=== PATIENT | male | born 1990 | race Caucasian/White ===

== ENCOUNTER 2017-01-14 20:12 | Emergency (ER) | payer SELFPAY ==
[~2017-01-14] VITALS: Ht 177.8 cm; Wt 61.2 kg
[~2017-01-14 20:12] MED LIST: 'PARAFON FORTE500 M1 PO; AMOXICILLIN500 M2 PO; AMOXICILLIN500 MG PO; CLARITIN-D 12 H1 TAB PO; CORTISPORIN SUS10 ML OT; DARVOCET N 1001 TAB PO; DEPAKOTE500 MG; HYDROCODONE BIT1 T11 PO; MOTRIN800 MG PO; Motrin,Rufen800 MG PO; NAPROSYN500 MG PO; OMNICEF300 MG PO; SEROQUEL50 MG PO; TOBREX OPHTH S2.5 ML OPH; ZOLOFT50 MG PO; ZYRTEC10 MG PO; Zofran4 MG PO
[2017-01-14 20:18] VITALS: BP 132/99
== END 2017-01-14 22:23 | disposition home or self-care (01) ==
LOC: ED 20:12
DX: M79.641 Pain in right hand (principal); F17.200 Nicotine dependence, unspecified, uncomplicated; Z91.030 Bee allergy status

== ENCOUNTER 2017-06-13 12:21 | Emergency (ER) | payer SELFPAY ==
[~2017-06-13] VITALS: Ht 177.8 cm; Wt 56.7 kg
[2017-06-13 12:42] VITALS: BP 136/82
[2017-06-13] MEDS ORDERED: AMOXICILLIN500 M2 PO (14:27)
[2017-06-13] MEDS ORDERED: FLONASE ALLERG9.9 ML NAS (14:27)
== END 2017-06-13 14:39 | disposition home or self-care (01) ==
LOC: ED 12:21
DX: R51 Headache (principal); J32.9 Chronic sinusitis, unspecified; G43.909 Migraine, unspecified, not intractable, without status migrainosus; F17.200 Nicotine dependence, unspecified, uncomplicated; Z91.030 Bee allergy status; Z79.899 Other long term (current) drug therapy

== ENCOUNTER 2017-07-31 09:43 | Emergency (ER) | payer SELFPAY ==
[~2017-07-31] VITALS: Ht 177.8 cm; Wt 52.2 kg
[~2017-07-31 09:43] MED LIST changes: +FLONASE ALLERG9.9 ML NAS
[2017-07-31 09:48] VITALS: BP 129/90
== END 2017-07-31 11:20 | disposition home or self-care (01) ==
LOC: ED 09:43
DX: S60.221A Contusion of right hand, initial encounter (principal); S60.311A Abrasion of right thumb, initial encounter; Z79.899 Other long term (current) drug therapy; W22.01XA Walked into wall, initial encounter; Y93.89 Activity, other specified; Y92.89 Other specified places as the place of occurrence of the external cause; Y99.9 Unspecified external cause status

== ENCOUNTER 2018-03-13 10:05 | Emergency (ER) | payer SELFPAY ==
[~2018-03-13] VITALS: Ht 177.8 cm; Wt 68.0 kg
[2018-03-13 10:50] LABS: BASO # 0.1 10*3/uL (0.0-0.1); BASO % 0.4 % (0.0-1.0); EOS # 0.3 10*3/uL (0.0-0.4); EOS % 1.8 % (1.0-4.0); HEMATOCRIT 45.5 % (42.0-52.0); HEMOGLOBIN 15.8 g/dl (14.0-18.0); LYMPH # 1.5 10*3/uL (1.3-4.4); LYMPH % 9.7 % (27.0-41.0); MEAN CELL VOLUME 95.4 fl (80.0-94.0); MEAN CORPUSCULAR HGB 33.1 pg (27.0-31.0); MEAN CORPUSCULAR HGB CONC 34.7 g/dl (33.0-37.0); MEAN PLATELET VOLUME 12.2 fl (9.6-12.3); MONO # 0.7 10*3/uL (0.1-1.0); MONO % 4.3 % (3.0-9.0); NEUT # 13.1 10*3/uL (2.3-7.9); NEUT % 83.2 % (47.0-73.0); PLATELET COUNT AUTOMATED 158 10*3/uL (130-400); RED BLOOD COUNT 4.77 10*6/uL (4.50-5.90); RED CELL DISTRI WIDTH 12.4 % (0-14.5); WHITE BLOOD COUNT 15.7 10*3/uL (4.8-10.8)
[2018-03-13 11:04] LABS: ALBUMIN 4.7 gm/dl (3.1-4.5); ALKALINE PHOSPHATASE 69 U/L (45-117); BUN 15 mg/dl (7-24); CHLORIDE 107 mmol/L (98-107); CREATININE 1.17 mg/dL (0.70-1.30); LIPASE 441 U/L (73-393); POTASSIUM 4.4 mmol/L (3.5-5.1); SGOT/AST 15 IU/L (3-35); SGPT/ALT 23 U/L (12-78); SODIUM 138 mmol/L (136-145); TOTAL PROTEIN 7.8 gm/dL (6.4-8.2)
[2018-03-13 11:32] VITALS: BP 123/57
[2018-03-13 12:55] LABS: BILIRUBIN NEGATIVE (NEGATIVE); BLOOD NEGATIVE (NEGATIVE); CLARITY CLEAR (CLEAR); COLOR YELLOW (YELLOW); GLUCOSE NEGATIVE (NEGATIVE); KETONE TRACE (NEGATIVE); LEUKO ESTERASE NEGATIVE (NEGATIVE); NITRITE NEGATIVE (NEGATIVE); UROBILINOGEN 0.2 E.U./dl (0.2-1.0)
== END 2018-03-13 15:34 | disposition left against medical advice (07) ==
LOC: ED 10:05
PROVIDERS: Emergency Medicine
DX: K80.50 Calculus of bile duct without cholangitis or cholecystitis without obstruction (principal)

== ENCOUNTER 2020-09-22 19:43 | Emergency (ER) | payer SELFPAY ==
[~2020-09-22] VITALS: Ht 167.6 cm; Wt 56.7 kg
[2020-09-23] MEDS ORDERED: CEFDINIR300 MG PO (11:12)
== END 2020-09-23 02:00 | disposition left against medical advice (07) ==
LOC: ED 19:43
DX: H92.03 Otalgia, bilateral (principal); Z53.21 Procedure and treatment not carried out due to patient leaving prior to being seen by health care provider

== ENCOUNTER 2020-09-23 10:37 | Emergency (ER) | payer SELFPAY ==
[~2020-09-23] VITALS: Ht 177.8 cm; Wt 61.2 kg
[2020-09-23 10:42] VITALS: BP 136/74
[2020-09-23] MEDS ORDERED: CEFDINIR300 MG PO (11:12)
== END 2020-09-23 11:30 | disposition home or self-care (01) ==
LOC: ED 10:37
DX: H66.91 Otitis media, unspecified, right ear (principal); H66.92 Otitis media, unspecified, left ear; Z96.22 Myringotomy tube(s) status

== ENCOUNTER 2020-10-09 20:12 | Emergency (ER) | payer MEDICAID ==
[~2020-10-09] VITALS: Ht 177.8 cm; Wt 61.2 kg
[~2020-10-09 20:12] MED LIST changes: +CEFDINIR300 MG PO
[2020-10-09 20:19] VITALS: BP 142/90
== END 2020-10-09 22:50 | disposition home or self-care (01) ==
LOC: ED 20:12
DX: H61.21 Impacted cerumen, right ear (principal); Z96.22 Myringotomy tube(s) status

== ENCOUNTER 2021-01-05 14:20 | Emergency (ER) | payer OTHER ==
[~2021-01-05] VITALS: Ht 177.8 cm; Wt 59.0 kg
[2021-01-05 14:38] VITALS: BP 124/72
[2021-01-06] MEDS ORDERED: FLONASE ALLERG9.9 ML NAS (14:20)
== END 2021-01-05 19:53 | disposition left against medical advice (07) ==
LOC: ED 14:20
DX: R51.9 Headache, unspecified (principal); Z53.21 Procedure and treatment not carried out due to patient leaving prior to being seen by health care provider

== ENCOUNTER 2021-01-06 12:30 | Emergency (ER) | payer OTHER ==
[2021-01-06 12:46] VITALS: BP 143/86
[2021-01-06] MEDS ORDERED: FLONASE ALLERG9.9 ML NAS (14:20)
== END 2021-01-06 14:28 | disposition home or self-care (01) ==
LOC: ED 12:30
DX: J01.90 Acute sinusitis, unspecified (principal)

== ENCOUNTER 2024-01-22 15:26 | Emergency (ER) | payer OTHER ==
[~2024-01-22] VITALS: Wt 61.2 kg
[2024-01-22 16:18] VITALS: BP 158/90
[2024-01-22] MEDS ORDERED: PREDNISONE50 MG PO (17:05)
[2024-01-22] MEDS ORDERED: methylPREDNISolone sod succ 125 MG VIAL IM ONE (17:05)
== END 2024-01-22 17:22 | disposition home or self-care (01) ==
LOC: ED 15:26
DX: S39.011A Strain of muscle, fascia and tendon of abdomen, initial encounter (principal); F90.9 Attention-deficit hyperactivity disorder, unspecified type; G43.909 Migraine, unspecified, not intractable, without status migrainosus; Z98.890 Other specified postprocedural states; X50.1XXA Overexertion from prolonged static or awkward postures, initial encounter; Y93.89 Activity, other specified; Y92.89 Other specified places as the place of occurrence of the external cause; Y99.8 Other external cause status

== ENCOUNTER 2025-02-02 16:13 | Emergency (ER) | payer OTHER ==
[~2025-02-02] VITALS: Ht 177.8 cm; Wt 61.2 kg
[~2025-02-02 16:13] MED LIST changes: +PREDNISONE50 MG PO
[2025-02-02 16:24] VITALS: BP 119/68
[2025-02-02] MEDS ORDERED: Acetaminophen/Hydrocodone 5 MG/325 MG TABLET PO ONE ×2 (16:35→18:25)
[2025-02-02] MEDS ORDERED: Ondansetron Hydrochloride 4 MG TAB PO ONE (16:35)
[2025-02-02] MEDS ORDERED: HYDROCODONE-AC1 EAC1 PO (18:20)
== END 2025-02-02 18:39 | disposition home or self-care (01) ==
LOC: ED 16:13
DX: S92.424A Nondisplaced fracture of distal phalanx of right great toe, initial encounter for closed fracture (principal); Z79.899 Other long term (current) drug therapy; W10.8XXA Fall (on) (from) other stairs and steps, initial encounter; Y93.89 Activity, other specified; Y92.89 Other specified places as the place of occurrence of the external cause; Y99.8 Other external cause status